=== PATIENT | male | born 1970 | race Caucasian/White ===

== ENCOUNTER → 2022-06-11 09:38 | Outpatient (CLI) | payer OTHER, SELFPAY ==
--- NOTE | 2022-06-11 09:42 | DI.ECHO.S_ITS ---
[place] [facility]---------+ [facility] +---------+ : : [address] : [address] : : : : [id number] : : : : Phone: [phone]---------+ Echocardiogram Report + + :Name: MAGNOLIA CALDWELL Study Date: 06/11/2022 Height: 69 in : :[facility] ReadingLocation: Weight: 220 lb : : Gender: Male BSA: 2.2 m2 : :: 1970 Age: 52 yrs BP: 102/68 mmHg: :Reason For Study: CHEST PAIN HR: 55 : :Ordering Physician: OLEG, : :CARLO Performed By: TAISHA GUEVARA : :Referring: CARLO LANGE : + + Interpretation Summary 1) Normal left ventricular thickness, size, wall motion, and systolic function (EF 60-65%). 2) Mildly to moderately enlarged right ventricle with low normal function. 3) No significant valvular abnormalities. 4) No prior Echo available for comparison. Procedure: A two-dimensional transthoracic echocardiogram with color flow and Doppler was performed. The study quality was technically adequate. There is no prior echocardiogram noted for this patient. The patient was in normal sinus rhythm during the exam. Left Ventricle: The left ventricle is normal in size. There is normal left ventricular wall thickness. Left ventricular systolic function is normal. The ejection fraction is estimated to be 60-65%. Left ventricular wall motion is normal. Diastolic parameters suggest probable normal left ventricular diastolic function and normal filling pressures. Right Ventricle: The right ventricle is mild to moderately dilated. Right ventricular systolic function is at the lower limits of normal. Atria: The left atrial size is normal. The right atrium is mildly dilated. There is no Doppler evidence for an interatrial shunt. Mitral Valve: The mitral valve is normal in structure and function. There is trace mitral regurgitation. Aortic Valve: The aortic valve is trileaflet. The aortic valve opens well. There is no aortic valve stenosis. There is trace aortic regurgitation. Tricuspid Valve: The tricuspid valve is normal in structure and function. There is mild tricuspid regurgitation. The right ventricular systolic pressure is estimated to be at least 26 mmHg based on an estimated right atrial pressure of 3 mm Hg. Pulmonic Valve: The pulmonic valve leaflets are thin and pliable; valve motion is normal. There is no pulmonic valvular regurgitation. Great Vessels: The aortic root is normal size. The ascending aorta is normal in size. The IVC is of normal diameter and collapses greater than 50% with a sniff. This suggests a low right atrial pressure of 3 mm Hg. Pericardium/ Pleura There is no pericardial effusion. There is no pleural effusion. MMode/2D Measurements & Calculations LVIDd: 5.3 cm LVOT diam: 2.2 cm LVIDs: 2.9 cm Ao root diam: 2.9 cm FS: 44.8 % asc Aorta Diam: 3.5 cm IVSd: 1.0 cm LVPWd: 0.91 cm LV marcus. diameter/BSA (cm/m^2): 2.4 LV sys. diameter/BSA (cm/m^2): 1.3 LA A2 area: 20.3 cm2 RA long axis: 5.4 cm LA A4 area: 19.3 cm2 RA area: 17.6 cm2 LA length (vol): 5.3 cm RA vol: 49.0 ml LA vol: 62.3 ml RA : 22.8 ml/m2 LA vol index: 29.0 ml/m2 IVC diam: 1.5 cm RVD1 (basal): 4.3 cm TAPSE: 1.8 cm Doppler Measurements & Calculations Ao V2 max: 112.1 cm/sec LVOT Max Keaton: 102.9 cm/sec Ao V2 mean: 85.2 cm/sec LV V1 max P.2 mmHg Ao max P.0 mmHg LV V1 VTI: 24.7 cm Ao mean P.1 mmHg RAN(I,D): 3.8 cm2 Ao V2 VTI: 23.7 cm RAN(V,D): 3.3 cm2 sev ratio: 1.0 RAN indexed to BSA (cm^2/m^2): 1.8 AI P1/2t: 515.4 msec AI dec slope: 227.3 cm/sec2 MV E max keaton: 60.2 cm/sec TR max keaotn: 237.1 cm/sec MV A max keaton: 53.2 cm/sec TR max P.5 mmHg MV E/A: 1.1 PA V2 max: 107.5 cm/sec Med Peak E' Keaton: 10.1 cm/sec PA V2 mean: 76.2 cm/sec E/E' med: 6.0 PA mean P.5 mmHg Lat Peak E' Keaton: 11.9 cm/sec PA pr(Accel): 29.3 mmHg E/E' lat: 5.1 E/e' average: 5.5 MV dec time: 0.20 sec SV(LVOT): 89.8 ml Reading Physician:03:05 PM
--- NOTE | 2022-06-11 09:42 | DI.NM.S_ITS ---
PROCEDURE: NM PRIMO PERF SPECT R&S PHARM Rest and pharmacological stress myocardial perfusion SPECT with gated imaging and ejection fraction RADIOPHARMACEUTICAL: 11.9 mCi Tc-99m tetrafosmin IV at rest and 25.9 mCi Tc-99m tetrafosmin IV at peak effect of pharmacological stress. [id number] was performed. INDICATIONS: CHEST PAIN, UNSPECIFIED TECHNIQUE: Radiopharmaceutical was injected at peak stress test, and also at rest. SPECT images were obtained. SPECT myocardial perfusion images were displayed in short axis, horizontal long axis, and vertical long axis views. Gated images were reviewed using [employer] software. COMPARISON: None. CARDIAC STRESS: A pharmacologic stress test was performed under the supervision of an attending staff, using an infusion of regadenoson 0.4 mg IV. Hemodynamic data: There is normal blood pressure and heart rate response to pharmacologic stress. Symptoms: The patient denied anginal chest pain. EKG: No diagnostic changes of ischemia; no ectopy. FINDINGS: Raw data: There is good myocardial uptake of radiotracer. No significant motion artifacts. [id number] ratio is 0.33 (normal is less than 0.38 for tetrafosmin tracer). Left ventricle function: Gated images demonstrate normal left ventricular wall thickening. No segmental wall motion abnormalities. No transient ischemic dilation; TID is 1.03 (normal less than 1.3). Left ventricle resting end diastolic volume is 118 mL. Left ventricle stress ejection fraction is 74%; normal range is above 45%. Myocardial perfusion: There is normal distribution of activity in the right and left ventricular myocardium. No fixed or reversible perfusion defects. IMPRESSION: Low risk study. No evidence of pharmacologic induced ischemia or scar. Normal LV function. Dictated by: Vane Quiroz D.O. on 06/12/2022 at 16:45 Approved by: Vane Quiroz D.O. on 06/12/2022 at 16:47
[2022-06-11 10:39] LABS: Add Manual Diff / Slide Review NO; Basophils Absolute Auto 100 /uL (0-100); Basophils Percent Auto 0.7 % (0-2); Eosinophils Absolute Auto 200 /uL (0-450); Eosinophils Percent Auto 2.2 % (2-4); Hematocrit 45.3 % (41-53); Hemoglobin 15.4 g/dL (13.5-17.5); Lymphocytes Absolute Auto 3000 /uL (1100-4500); Mean Corpuscular Hemoglobin 29.8 PG (26-34); Mean Corpuscular Volume 87.6 fL (80-100); Monocytes Absolute Auto 600 /uL (0-900); Monocytes Percent Auto 7.2 % (3-14); Neutrophils Absolute Auto 4500 /uL (1500-7000); Neutrophils Percent Auto 53.9 % (50-75); Platelet Count 198 X10^3/uL (150-400); Red Blood Cell Count 5.17 X10^6/uL (4.5-5.9); Red Cell Distribution Width 13.3 % (11.6-14.8); White Blood Cell Count 8.3 X10^3/uL (4.5-11.0)
[2022-06-11 11:01] LABS: Alanine Aminotransferase 53 IU/L (<50); Albumin 4.3 g/dL (3.5-5.0); Albumin Globulin Ratio 1.5 (1.0-2.8); Alkaline Phosphatase 77 U/L (38-126); Aspartate Aminotransferase 39 IU/L (17-59); BUN Creatinine Ratio 16.2 (6-22); Bilirubin Total 0.8 mg/dL (0.2-1.3); Blood Urea Nitrogen 17 mg/dL (9-20); Calcium 9.2 mg/dL (8.4-10.2); Carbon Dioxide 27 mmol/L (22-32); Chloride 102 mmol/L (98-107); Cholesterol 217 mg/dL (140-199); Estimated Glomerular Filt Rate > 60 mL/min (>60); Globulin 2.9 g/dL (1.7-4.1); Glucose 105 mg/dL (70-100); HDL Cholesterol 34 mg/dL (40-60); HEMOLYSIS < 15 (0-50); LDL Cholesterol Calculated 114 mg/dL (<100); Potassium 4.3 mmol/L (3.4-5.1); Sodium 138 mmol/L (137-145); Total Protein 7.2 g/dL (6.3-8.2); Triglycerides 343 mg/dL (35-150)
[2022-06-11 11:31] LABS: TSH w/ Reflex to FT4 4.38 uIU/mL (0.47-4.68)
== END ==
PROVIDERS: PCP Family Medicine; Referring Provider Internal Medicine Cardiovascular Disease; Visit Provider Internal Medicine Cardiovascular Disease
DX: I07.1 Rheumatic tricuspid insufficiency; R07.9 Chest pain, unspecified; R55 Syncope and collapse; R00.0 Tachycardia, unspecified; R42 Dizziness and giddiness; I48.0 Paroxysmal atrial fibrillation; R03.0 Elevated blood-pressure reading, without diagnosis of hypertension; R53.82 Chronic fatigue, unspecified
CPT/HCPCS: 36415; 78452; 80053; 80061; 84443; 85025; 93017; 93306; A9502; J2785